=== PATIENT | female | born 1955 | race Caucasian/White ===

== ENCOUNTER 2016-11-12 12:09 | Emergency (ER) | payer OTHER ==
[~2016-11-12] VITALS: Ht 156.2 cm; Wt 57.6 kg
--- NOTE | 2016-11-12 13:56 | ED INFLUENZA/URI COMPLAINT ---
History of Present Illness General Chief Complaint: Upper Respiratory Sx/Fever Stated Complaint: ? SINUS INFECTION Source: patient Exam Limitations: no limitations Vital Signs & Intake/Output Vital Signs & Intake/Output Vital Signs Date Time Temp Pulse Resp B/P B/P Pulse O2 O2 Flow FiO2 Mean Ox Delivery Rate 11/12 1419 97.7 76 16 163/72 98 Room Air 11/12 1214 97.5 86 18 173/79 98 Room Air Allergies Coded Allergies: MDX - SULFA (sulfonamide) (10/13/08) Reconcile Medications Amoxicillin/Potassium Clav (Augmentin 875-125 Tablet) 875 MG-125 MG TABLET 1 TAB PO BID sinusitis Triage Note: PT COMPLAINS OF SINUS INFECTION FOR THE PAST MONTH WAS TREATED WITH ABT Triage Nurses Notes Reviewed? yes HPI: Patient is a 60-year-old female presents complaining of sinus congestion and pain for the past one month. Pressure is moderate, no exacerbating or alleviating factors. Patient has been seen at an urgent care clinic twice over the past 1 month for her symptoms. Patient was placed on cefdinir but was only able to take 2 doses and then she developed significant diarrhea and stopped taking the antibiotics. Patient has also been using an albuterol inhaler for her cough with no significant improvement. Patient denies wheezing, dyspnea, fevers. Past History Travel History Traveled to [place] past 21 day No Medical History Any Pertinent Medical History? none Neurological: NONE EENT: NONE Cardiovascular: NONE Respiratory: NONE Gastrointestinal: NONE Hepatic: NONE Renal: NONE Musculoskeletal: NONE Psychiatric: NONE Endocrine: NONE Blood Disorders: NONE Cancer(s): NONE CR[employer]/Reproductive: NONE Tetanus Vaccine: 01/07/13 Surgical History Surgical History: non-contributory Psychosocial History What is your primary language Cameroonian Tobacco Use: Never used ETOH Use: denies use Illicit Drug Use: denies illicit drug use Family History Hx Contributory? No Review of Systems Review of Systems Constitutional: Denies: chills, fever. EENTM: Reports: nasal congestion (positive postnasal drip). Denies: ear pain, throat pain. Respiratory: Reports: cough. Denies: short of breath, wheezing. Cardiovascular: Denies: chest pain. GI: Denies: abdominal pain. Musculoskeletal: Reports: no symptoms. Skin: Reports: no symptoms. Neurological/Psychological: Reports: headache. Hematologic/Endocrine: Denies: bruising, bleeding. Immunologic/Allergic: Denies: splenectomy. Physical Exam Physical Exam General Appearance: well developed/nourished, alert, awake Head: atraumatic, normal appearance, mild bilateral maxillary sinus pressure with palpation Eyes: Bilateral: normal appearance, PERRL, EOMI. Ears, Nose, Throat: moist mucous membrane, hearing grossly normal, Tympanic normal, pharynx normal, nasal congestion Neck: normal inspection, supple, full range of motion Respiratory: normal breath sounds, chest non-tender, no respiratory distress, lungs clear Cardiovascular: regular rate/rhythm (no appreciable murmur) Back: normal inspection, normal range of motion Extremities: normal inspection, normal capillary refill, normal range of motion, no edema Neurologic/Psych: no motor/sensory deficits, awake, alert, oriented x 3, normal gait, normal mood/affect Skin: intact, normal color, warm/dry Lymphatic: no anterior cervical andreas Core Measures Severe Sepsis Present: No Septic Shock Present: No Progress Differential Diagnosis: influenza, pneumonia, pharyngitis, sinusitis, bronchitis Plan of Care: Patient afebrile, nontoxic appearing. Labs and imaging deferred. Higher suspicion bacterial sinusitis given the time course of symptoms. Will start patient on antibiotics. Labs and imaging deferred secondary to exam. Patient instructed to follow up with her primary care doctor or her ear nose and throat doctor if no improvement within 3-5 days. Initial ED EKG: none Departure Departure Time of Disposition: 1405 Disposition: HOME OR SELF CARE Condition: Stable Clinical Impression Primary Impression: Maxillary sinusitis, acute Qualifiers: Recurrence: non-recurrent Qualified Code: J01.00 - Acute maxillary sinusitis, unspecified Referrals: KISHAN CONROY,KIRT Simmons (PCP/Family) Additional Instructions: Follow up with your primary doctor or your ear, nose and throat doctor if no improvement within 3-5 days. Return to the ER if difficulty breathing or worsening of symptoms. Departure Forms: Customer Survey General Discharge Information Prescriptions: Current Visit Scripts Amoxicillin/Potassium Clav (Augmentin 875-125 Tablet) 1 TAB PO BID #14 TAB
[2016-11-12] MEDS ORDERED: AUGMENTIN 875-1 EACH PO (14:06)
[2016-11-12 14:19] VITALS: BP 163/72
== END 2016-11-12 14:21 ==
LOC: ERH 12:09
DX: J01.00 Acute maxillary sinusitis, unspecified (principal)